=== PATIENT | male | born 1945 | race Caucasian/White ===

== ENCOUNTER 2017-03-01 16:56 | Inpatient (IN) | payer MEDICARE ==
[~2017-03-01] VITALS: Ht 180.3 cm; Wt 94.0 kg
[~2017-03-01 16:56] MED LIST: ALEVE220 M1 PO; ALEVE220 M2 PO; ALLEGRA-D 2424 HOUR PO; ASPIRIN EC81 MG PO; ATORVASTATI80 MG/TAB PO; AUGMENTIN500TAB PO; BRILINTA90 MG PO; C 500 PO; CALTRAT1 PO; CENTRUM PO; CIPRO XR500 MG PO; CITRACAL + D3 MAXIMU PO; CRESTOR20 MG PO; CRESTOR5 MG PO; DILAUDID 2MG2 MG/TA1 PO; ENALAPRIL10 MG PO; ENALAPRIL5 MG PO; FLONASE NASAL50 MCG; FLUARIX QUADRIV1 IN1 IM; FLUARIX QUADRIV1 INJ IM; HYDROCHLORO25 MG/TAB PO; MEGARED OMEGA-31 CAP PO; METO25TAB; MULTI VIT PO; OMEPRAZOLE10 MG PO; OSTEO BI-FLE PO; OSTEO BI-FLEX R1 TAB PO; SOTALOL HCL80 MG PO; URINOZINC PO; VERAPAMIL120 M1 PO; ZYRTEC10 MG PO
[2017-03-01] MEDS ORDERED: TAMSULOSIN0.4 MG PO (17:21)
[2017-03-01] MEDS ORDERED: CIPROFLOXACIN250 MG PO (17:21)
[2017-03-01 19:51] LABS: HEMATOCRIT 48.2 % (39.0-50.0); HEMOGLOBIN 16.2 g/dl (14.0-18.0); IMMATURE GRANULOCYTES 0.3 % (0.0-1.0); MEAN CELL VOLUME 92.3 fL CALC (80.0-100.0); MEAN CORPUSCULAR HGB CONC 33.6 g/L CALC (32.0-36.0); NEUT# 8.23 thou/uL (1.82-7.42); RED BLOOD COUNT 5.22 mill/uL (4.70-6.10); RED CELL DISTRI WIDTH 13.2 % (11.5-15.5)
[2017-03-01 20:01] LABS: ALBUMIN 4.1 g/dL (3.2-5.0); ALKALINE PHOSPHATASE 62 u/l (38-126); ANION GAP 19 (6-22 (CALC)); BILIRUBIN, TOTAL 0.6 mg/dL (0.0-1.4); BUN 22 mg/dL (8-23); BUN/CREATININE RATIO 26 (12-20 (CALC)); CALCIUM 9.8 mg/dL (8.4-10.2); CARBON DIOXIDE 21 mmol/l (22-30); CHLORIDE 107 mmol/l (95-108); CREATININE 0.8 mg/dL (0.7-1.3); GFR > 60 ML/MIN (>=60 (CALC)); GFR FOR AFR.AMER. > 60 ML/MIN (>=60 (CALC)); GLUCOSE 128 mg/dL (82-115); SGOT/AST 28 u/l (19-48); SGPT/ALT 36 u/l (11-66); SODIUM 142 mmol/l (137-146); TOTAL PROTEIN 7.3 g/dL (6.3-8.2)
[2017-03-01 20:10] LABS: ACT PARTIAL THROMBO TIME 25.7 SECONDS (20.0-32.5); PROTHROMBIN TIME 11.5 SECONDS (9.0-12.5)
[2017-03-01 23:15] VITALS: BP 113/67
[2017-03-01 23:30] VITALS: BP 107/76
[2017-03-01 23:45] VITALS: BP 112/74
[2017-03-02] VITALS (16 sets, daily range): BP systolic 90–113; BP diastolic 53–78
[2017-03-02 05:43] LABS: HEMATOCRIT 42.7 % (39.0-50.0); HEMOGLOBIN 14.2 g/dl (14.0-18.0); IMMATURE GRANULOCYTES 0.4 % (0.0-1.0); MEAN CORPUSCULAR HGB 30.9 pG CALC (26.0-32.0); MEAN CORPUSCULAR HGB CONC 33.3 g/L CALC (32.0-36.0); NEUT# 9.18 thou/uL (1.82-7.42); RED BLOOD COUNT 4.59 mill/uL (4.70-6.10); RED CELL DISTRI WIDTH 13.3 % (11.5-15.5)
[2017-03-02 05:54] LABS: ALBUMIN 3.4 g/dL (3.2-5.0); ALKALINE PHOSPHATASE 55 u/l (38-126); ANION GAP 17 (6-22 (CALC)); BILIRUBIN, TOTAL 0.7 mg/dL (0.0-1.4); BUN 22 mg/dL (8-23); BUN/CREATININE RATIO 26 (12-20 (CALC)); CALCIUM 9.5 mg/dL (8.4-10.2); CARBON DIOXIDE 23 mmol/l (22-30); CHLORIDE 104 mmol/l (95-108); CREATININE 0.9 mg/dL (0.7-1.3); GFR > 60 ML/MIN (>=60 (CALC)); GFR FOR AFR.AMER. > 60 ML/MIN (>=60 (CALC)); GLUCOSE 125 mg/dL (82-115); POTASSIUM 4.7 mmol/l (3.5-5.1); SGOT/AST 27 u/l (19-48); SGPT/ALT 36 u/l (11-66); SODIUM 139 mmol/l (137-146); TOTAL PROTEIN 6.2 g/dL (6.3-8.2)
[2017-03-03] VITALS: BP 78/41; BP 79/41
[2017-03-03 04:00] VITALS: BP 108/71
[2017-03-03 06:00] LABS: URINE BILIRUBIN - DIPSTICK NEGATIVE (NEGATIVE); URINE BLOOD DIPSTICK LARGE (NEGATIVE); URINE COLOR RED; URINE GLUCOSE - DIPSTICK NEGATIVE (NEGATIVE); URINE KETONE NEGATIVE (NEGATIVE); URINE LEUK ESTERASE TRACE (NEGATIVE); URINE NITRITE - DIPSTICK NEGATIVE (Negative); URINE PH 6.5 (4.5-8.0); URINE PROTEIN - DIPSTICK 100 mg/dL (NEG-TRACE); URINE UROBILINOGEN - DIPSTICK 0.2 E.U./dL (0.2)
[2017-03-03 06:01] LABS: URINE CLARITY CLEAR
[2017-03-03 06:21] LABS: URINE BACTERIA FEW hpf; URINE RBC 50-100 RBC/hpf (0-5)
[2017-03-03 08:00] VITALS: BP 91/52
[2017-03-03 10:00] VITALS: BP 101/69
[2017-03-03 12:00] VITALS: BP 105/73
[2017-03-03 14:00] VITALS: BP 101/66
[2017-03-03] MEDS ORDERED: CIPROFLOXACN250 MG PO (14:54)
[2017-03-03] MEDS ORDERED: TAMSULOSIN0.4 MG PO (14:57)
== END 2017-03-03 15:30 | DRG 726 ==
LOC: ED 16:56 → ED-I 17:41 → ED 17:51 → ICU 17:52 → MS2 17:52 → ICU 23:20
PROVIDERS: Emergency Medicine; ADMIT Internal Medicine; ATTEND Internal Medicine Geriatric Medicine
PROC: 0TCB8ZZ Extirpation of Matter from Bladder, Via Natural or Artificial Opening Endoscopic (ICD-10-PCS; principal; 2017-03-01)
PROC: 0T5D8ZZ Destruction of Urethra, Via Natural or Artificial Opening Endoscopic (ICD-10-PCS; 2017-03-01)
PROC: 0T9B70Z Drainage of Bladder with Drainage Device, Via Natural or Artificial Opening (ICD-10-PCS; 2017-03-01)
PROC: 3E0234Z Introduction of Serum, Toxoid and Vaccine into Muscle, Percutaneous Approach (ICD-10-PCS; 2017-03-03)
DX: N40.1 Benign prostatic hyperplasia with lower urinary tract symptoms (principal); N13.9 Obstructive and reflux uropathy, unspecified; R31.0 Gross hematuria; N36.5 Urethral false passage; E78.5 Hyperlipidemia, unspecified; R33.8 Other retention of urine; I12.9 Hypertensive chronic kidney disease with stage 1 through stage 4 chronic kidney disease, or unspecified chronic kidney disease; I25.10 Atherosclerotic heart disease of native coronary artery without angina pectoris; K21.9 Gastro-esophageal reflux disease without esophagitis; N18.9 Chronic kidney disease, unspecified; M19.90 Unspecified osteoarthritis, unspecified site; I25.2 Old myocardial infarction; E89.2 Postprocedural hypoparathyroidism; Z95.5 Presence of coronary angioplasty implant and graft; Z79.02 Long term (current) use of antithrombotics/antiplatelets; Z87.891 Personal history of nicotine dependence; Z79.82 Long term (current) use of aspirin; Z23 Encounter for immunization
CPT/HCPCS: J1650

== ENCOUNTER 2023-04-01 15:34 | Emergency (ER) | payer MEDICARE ==
[~2023-04-01] VITALS: Ht 180.3 cm; Wt 95.2 kg
[2023-04-01] VITALS (15 sets, daily range): BP systolic 121–153; BP diastolic 64–87
[~2023-04-01 15:34] MED LIST changes: +CIPROFLOXACIN250 MG PO; +CIPROFLOXACN250 MG PO; +TAMSULOSIN0.4 MG PO
[2023-04-01 16:18] LABS: BASO% 0.4 % (0-3); EOS% 1.6 % (0-8); HEMATOCRIT 42.4 % (39.0-50.0); HEMOGLOBIN 13.4 g/dl (14.0-18.0); IMMATURE GRANULOCYTES 0.1 % (0.0-5.0); LYMPH% 6.1 % (15-41); MEAN CORPUSCULAR HGB 28.8 pG CALC (26.0-32.0); MEAN CORPUSCULAR HGB CONC 31.6 g/dL CAL (32.0-36.0); MONO% 6.1 % (2-13); NEUT# 8.68 thou/uL (1.82-7.42); NEUT% 85.7 % (42-76); RED BLOOD COUNT 4.66 mill/uL (4.70-6.10); RED CELL DISTRI WIDTH 15.5 % (11.5-15.5)
[2023-04-01 16:34] LABS: ANION GAP 15 (6-22 (CALC)); BUN 22 mg/dL (8-23); BUN/CREATININE RATIO 22 (12-20 (CALC)); CARBON DIOXIDE 24 mmol/l (22-30); CHLORIDE 107 mmol/l (95-108); GFR FOR AFR.AMER. > 60 ML/MIN (>=60 (CALC)); GFR OTHER RACES > 60 ML/MIN (>=60 (CALC)); LIPASE 81 u/l (23-300); POTASSIUM 4.3 mmol/l (3.5-5.1); SODIUM 142 mmol/l (137-146); TOTAL PROTEIN 8.3 g/dL (6.3-8.2)
[2023-04-01 16:42] LABS: ALBUMIN 4.5 g/dL (3.2-5.0); ALKALINE PHOSPHATASE 116 u/l (38-126); BILIRUBIN, TOTAL 2.6 mg/dL (0.2-1.3); SGOT/AST 260 u/l (19-48)
[2023-04-01] MEDS ORDERED: BRILINTA90 MG PO (18:45)
[2023-04-01] MEDS ORDERED: ATORVASTATIN CA40 MG PO (18:47)
[2023-04-01] MEDS ORDERED: EZETIMIBE10 MG PO (18:47)
[2023-04-01] MEDS ORDERED: [UNRECOGNIZED DRUG - OTHER] PO (18:49)
[2023-04-01] MEDS ORDERED: MEGARED OMEGA-31 CAP PO (18:50)
[2023-04-01 19:32] LABS: URINE BLOOD DIPSTICK Small (NEGATIVE); URINE GLUCOSE - DIPSTICK Negative (NEGATIVE); URINE KETONE 15 mg/dL (NEGATIVE); URINE NITRITE - DIPSTICK Negative (Negative); URINE PH 5.5 (4.5-8.0); URINE PROTEIN - DIPSTICK 30 mg/dL (NEG-TRACE); URINE SPECIFIC GRAVITY >=1.030
[2023-04-01 19:34] LABS: URINE COLOR Yellow; URINE LEUK ESTERASE Small (NEGATIVE)
[2023-04-01 19:43] LABS: URINE WBC 20-50 WBC/hpf (0-5)
[2023-04-01 19:46] LABS: URINE URIC ACID CRYSTALS MODERATE lpf
== END 2023-04-02 01:37 | disposition short-term general hospital (02) ==
LOC: ED 15:34
PROVIDERS: Emergency Medicine
DX: K80.62 Calculus of gallbladder and bile duct with acute cholecystitis without obstruction (principal); N20.0 Calculus of kidney; K57.30 Diverticulosis of large intestine without perforation or abscess without bleeding; R74.8 Abnormal levels of other serum enzymes; I10 Essential (primary) hypertension; I25.2 Old myocardial infarction; Z87.442 Personal history of urinary calculi
CPT/HCPCS: S0164

== ENCOUNTER 2023-12-11 08:00 | Day surgery (SDC) | payer MEDICARE ==
[~2023-12-11] VITALS: Ht 177.8 cm; Wt 93.9 kg
[~2023-12-11 08:00] MED LIST changes: +ATORVASTATIN CA40 MG PO; +CALCIUM500 MG/D PO; +EZETIMIBE10 MG PO; +FINASTERIDE5 MG PO; +TYLENOL 8 HOUR650 MG PO; +[UNRECOGNIZED DRUG - OTHER] PO
[2023-12-11] MEDS ORDERED: SODIUM CHLORIDE 0.9% 1,000 ML IV ONE ×2 (08:03→10:23)
[2023-12-11] MEDS ORDERED: FAMOTIDINE 10MG/ML 2ML SDV IV ONE (08:03)
[2023-12-11] MEDS ORDERED: STERILE WATER FOR IRRIGATION 1,000 ML BTL IR ONE (08:14)
[2023-12-11] MEDS ORDERED: LIDOcaine HCl 1% (Local Anesth.) 20 ML VIAL ONE (08:14)
[2023-12-11] MEDS ORDERED: SODIUM CHLORIDE 1,000 ML BTL IR ONE (08:14)
[2023-12-11] MEDS ORDERED: ceFAZolin Sodium 2 GM/VIAL SDV ONE (08:48)
[2023-12-11] MEDS ORDERED: SODIUM CHLORIDE 0.9% 100 ML IV ONE (08:48)
[2023-12-11] MEDS ORDERED: PERCOCET 5/325M1 TAB PO (10:12)
[2023-12-11] MEDS ORDERED: ACETAMINOPHEN 100 ML IV ONE (10:18)
[2023-12-11 11:14] VITALS: BP 131/72
[2023-12-11] MEDS ORDERED: ePHEDrine SULFATE 50 MG/ML AMP IV ONE (12:22)
[2023-12-11] MEDS ORDERED: ROCURONIUM BROMIDE 10 MG/ML 5ML VIAL IV ONE (12:22)
[2023-12-11] MEDS ORDERED: PROPOFOL 200 MG/20 ML VIAL IV ONE (12:22)
[2023-12-11] MEDS ORDERED: SUCCINYLCHOLINE CHLORIDE 20 MG/ML 10ML VIAL IV ONE (12:22)
[2023-12-11] MEDS ORDERED: LIDOCAINE HCL 2% 2ML SDV IV ONE (12:22)
[2023-12-11] MEDS ORDERED: SUGAMMADEX SODIUM 200 MG/2 ML SDV IV ONE (12:22)
[2023-12-11] MEDS ORDERED: GLYCOPYRROLATE 0.2 MG/ML IV ONE (12:22)
== END 2023-12-11 10:38 | disposition home or self-care (01) ==
LOC: ORM 08:00
PROVIDERS: ATTEND Surgery
PROC: 0JB00ZZ Excision of Scalp Subcutaneous Tissue and Fascia, Open Approach (ICD-10-PCS; principal; 2023-12-11)
PROC: 0HR0X73 Replacement of Scalp Skin with Autologous Tissue Substitute, Full Thickness, External Approach (ICD-10-PCS; 2023-12-11)
PROC: 0HBJXZZ Excision of Left Upper Leg Skin, External Approach (ICD-10-PCS; 2023-12-11)
DX: C44.42 Squamous cell carcinoma of skin of scalp and neck (principal); I25.10 Atherosclerotic heart disease of native coronary artery without angina pectoris; I25.2 Old myocardial infarction
CPT/HCPCS: J0131; J0690

== ENCOUNTER 2024-05-22 16:16 | Emergency (ER) | payer MEDICARE ==
[~2024-05-22] VITALS: Ht 177.8 cm; Wt 87.0 kg
[2024-05-22] VITALS (12 sets, daily range): BP systolic 118–141; BP diastolic 67–80
[~2024-05-22 16:16] MED LIST changes: +PERCOCET 5/325M1 TAB PO
== END 2024-05-22 18:36 | disposition short-term general hospital (02) ==
LOC: ED 16:16
DX: I62.01 Nontraumatic acute subdural hemorrhage (principal); R26.89 Other abnormalities of gait and mobility; R29.700 NIHSS score 0; I10 Essential (primary) hypertension; I25.10 Atherosclerotic heart disease of native coronary artery without angina pectoris; R23.4 Changes in skin texture; Z72.0 Tobacco use; I25.2 Old myocardial infarction; Z92.3 Personal history of irradiation; Z85.828 Personal history of other malignant neoplasm of skin; R51.9 Headache, unspecified